=== PATIENT | male | born 1970 | race American Indian/Alaskan Native ===

== ENCOUNTER 2017-11-06 22:49 | Inpatient (IN) | payer SELFPAY ==
--- NOTE | 2017-11-06 22:52 | ER Report ---
History and Physical Time Seen By MD: 22:52 HPI/ROS CHIEF COMPLAINT: Abdominal pain HISTORY OF PRESENT ILLNESS: 46-year-old male with type II diabetes on metformin and herbs from [place] presents with epigastric pain across his upper abdomen since this morning. Patient ate at [facility] changed yesterday. He thinks he might have food poisoning. He's had vomiting but no diarrhea. He denies dysuria. He has no previous abdominal surgeries. He notes 8/10 epigastric pain radiating to his back. Patient denies cardiac history. REVIEW OF SYSTEMS: Respiratory: No cough, no dyspnea. Cardiovascular: No chest pain, no palpitations. Gastrointestinal: As above Musculoskeletal: As above Allergies: Coded Allergies: No Known Drug Allergies (Unverified , 11/06/17) Home Meds Reported Medications Metformin Hcl (METFORMIN HCL) 1,000 Mg Tablet, 1 TAB PO QDAY, TAB 11/06/17 Past Medical/Surgical History Type II diabetes Reviewed Nurses Notes: Yes Old Medical Records Reviewed: Yes Constitutional Vital Sign - Last 24 Hours 11/06/17 11/06/17 11/06/17 11/06/17 22:54 22:55 23:00 23:15 Temp 98.6 Pulse 107 Resp 20 B/P (MAP) 153/107 153/107 (122) 143/98 (113) 146/93 (110) Pulse Ox 95 O2 Delivery Room Air 11/06/17 11/06/17 11/06/17 11/06/17 23:19 23:30 23:38 23:45 Pulse 106 B/P (MAP) 141/93 (109) 150/99 (116) Pulse Ox 94 O2 Flow Rate 2.0 11/06/17 11/07/17 11/07/17 11/07/17 23:49 00:00 00:15 00:19 Pulse 102 101 B/P (MAP) 147/97 (114) 129/95 (106) Pulse Ox 97 96 11/07/17 11/07/17 11/07/17 11/07/17 00:24 00:45 01:00 01:05 Pulse 104 104 B/P (MAP) 126/87 (100) 121/88 (99) Pulse Ox 96 95 11/07/17 11/07/17 11/07/17 11/07/17 01:15 01:30 01:35 01:40 Pulse 104 101 B/P (MAP) 125/83 (97) 132/94 (107) Pulse Ox 94 95 Physical Exam General Appearance: The patient is alert, has no immediate need for airway protection and no current signs of toxicity. Moderate distress. Vital signs stable, afebrile, mildly tachycardic HEENT: Pupils equal and round no injection. Oropharynx without redness or exudate, mucous. Membranes are moist Respiratory: Chest is non tender, lungs are clear to auscultation. Cardiac: regular rate and rhythm Gastrointestinal: Abdomen is soft, mild distention, moderate epigastric tenderness, no masses, bowel sounds normal. Musculoskeletal: Neck: Neck is supple and non tender. Extremities have full range of motion and are non tender. Skin: No rashes or lesions. DIFFERENTIAL DIAGNOSIS: After history and physical exam differential diagnosis was considered for abdominal pain including but not limited to appendicitis, cholecystitis, gastritis, pancreatitis, gastritis, food poisoning and urinary tract infection. Medical Decision Making Data Points Result Diagram: 11/06/17 4230 11/06/17 5127 Laboratory Hematology Test 11/06/17 22:56 11/06/17 23:25 Urine Color Yellow Urine Clarity Clear Urine pH 7.0 pH (4.8-9.5) Urine Specific [place] 1.033 Urine Protein 100 mg/dL (NEGATIVE) Urine Glucose (UA) 500 mg/dL (NEGATIVE) Urine Ketones 80 mg/dL (NEGATIVE) Urine Blood Negative (NEGATIVE) Urine Nitrite Negative (NEGATIVE) Urine Bilirubin Negative (NEGATIVE) Urine Urobilinogen Negative mg/dL (0.2-1.9) Urine Leukocyte Esterase Negative (NEGATIVE) Urine RBC <1 /HPF (0-2/HPF) Urine WBC 1 /HPF (0-5/HPF) Urine Squamous Epithelial Cells None /LPF (</=FEW) Urine Bacteria Negative /HPF (NONE-FEW) Urine Mucus None /HPF (NONE-FEW) Red Blood Count 4.74 M/uL (4.00-5.60) Mean Corpuscular Volume 87.7 fL (80.0-96.0) Mean Corpuscular Hemoglobin 32.0 pg (26.0-33.0) Mean Corpuscular Hemoglobin Concent 36.1 g/dL (32.0-36.0) Red Cell Distribution Width 12.7 % (11.5-14.5) Mean Platelet Volume 10.3 fL (7.2-11.1) Neutrophils (%) (Auto) % (39.4-72.5) Lymphocytes (%) (Auto) % (17.6-49.6) Monocytes (%) (Auto) % (4.1-12.4) Eosinophils (%) (Auto) % (0.4-6.7) Basophils (%) (Auto) % (0.3-1.4) Nucleated RBC Relative Count (auto) /100WBC Neutrophils # (Auto) K/uL (2.0-7.4) Lymphocytes # (Auto) K/uL (1.3-3.6) Monocytes # (Auto) K/uL (0.3-1.0) Eosinophils # (Auto) K/uL (0.0-0.5) Basophils # (Auto) K/uL (0.0-0.1) Nucleated RBC Absolute Count (auto) K/uL Neutrophils % (Manual) 82 % (39.4-72.5) Band Neutrophils % % Lymphocytes % (Manual) 12 % (17.6-49.6) Monocytes % (Manual) 4 % (4.1-12.4) Eosinophils % (Manual) 1 % (0.4-6.7) Basophils % (Manual) 1 % (0.3-1.4) Peripheral Blood Smear Yes Y/N Sodium Level 128 mmol/L (137-145) Potassium Level 3.8 mmol/L (3.5-5.0) Chloride Level 91 mmol/L (98-107) Carbon Dioxide Level 18 mmol/L (22-30) Blood Urea Nitrogen 12 mg/dl (9-21) Creatinine 0.50 mg/dl (0.66-1.25) Glomerular Filtration Rate Calc > 60.0 Random Glucose 250 mg/dl (75-110) Calcium Level 8.9 mg/dl (8.4-10.2) Total Bilirubin 0.8 mg/dl (0.2-1.3) Aspartate Amino Transf (AST/SGOT) 17 U/L (0-35) Alanine Aminotransferase (ALT/SGPT) 17 U/L (0-56) Alkaline Phosphatase 104 U/L (0-126) Total Protein 7.2 gm/dl (6.3-8.2) Albumin 3.4 g/dl (3.5-5.0) Amylase Level 350 U/L (0-110) Lipase 44747 U/L (23-300) Chemistry Test 11/06/17 22:56 11/06/17 23:25 Urine Color Yellow Urine Clarity Clear Urine pH 7.0 pH (4.8-9.5) Urine Specific [place] 1.033 Urine Protein 100 mg/dL (NEGATIVE) Urine Glucose (UA) 500 mg/dL (NEGATIVE) Urine Ketones 80 mg/dL (NEGATIVE) Urine Blood Negative (NEGATIVE) Urine Nitrite Negative (NEGATIVE) Urine Bilirubin Negative (NEGATIVE) Urine Urobilinogen Negative mg/dL (0.2-1.9) Urine Leukocyte Esterase Negative (NEGATIVE) Urine RBC <1 /HPF (0-2/HPF) Urine WBC 1 /HPF (0-5/HPF) Urine Squamous Epithelial Cells None /LPF (</=FEW) Urine Bacteria Negative /HPF (NONE-FEW) Urine Mucus None /HPF (NONE-FEW) White Blood Count 16.5 k/uL (4.5-11.0) Red Blood Count 4.74 M/uL (4.00-5.60) Hemoglobin 15.0 g/dL (14.0-18.0) Hematocrit 41.6 % (42.0-52.0) Mean Corpuscular Volume 87.7 fL (80.0-96.0) Mean Corpuscular Hemoglobin 32.0 pg (26.0-33.0) Mean Corpuscular Hemoglobin Concent 36.1 g/dL (32.0-36.0) Red Cell Distribution Width 12.7 % (11.5-14.5) Platelet Count 232 K/uL (150-450) Mean Platelet Volume 10.3 fL (7.2-11.1) Neutrophils (%) (Auto) % (39.4-72.5) Lymphocytes (%) (Auto) % (17.6-49.6) Monocytes (%) (Auto) % (4.1-12.4) Eosinophils (%) (Auto) % (0.4-6.7) Basophils (%) (Auto) % (0.3-1.4) Nucleated RBC Relative Count (auto) /100WBC Neutrophils # (Auto) K/uL (2.0-7.4) Lymphocytes # (Auto) K/uL (1.3-3.6) Monocytes # (Auto) K/uL (0.3-1.0) Eosinophils # (Auto) K/uL (0.0-0.5) Basophils # (Auto) K/uL (0.0-0.1) Nucleated RBC Absolute Count (auto) K/uL Neutrophils % (Manual) 82 % (39.4-72.5) Band Neutrophils % % Lymphocytes % (Manual) 12 % (17.6-49.6) Monocytes % (Manual) 4 % (4.1-12.4) Eosinophils % (Manual) 1 % (0.4-6.7) Basophils % (Manual) 1 % (0.3-1.4) Peripheral Blood Smear Yes Y/N Glomerular Filtration Rate Calc > 60.0 Calcium Level 8.9 mg/dl (8.4-10.2) Total Bilirubin 0.8 mg/dl (0.2-1.3) Aspartate Amino Transf (AST/SGOT) 17 U/L (0-35) Alanine Aminotransferase (ALT/SGPT) 17 U/L (0-56) Alkaline Phosphatase 104 U/L (0-126) Total Protein 7.2 gm/dl (6.3-8.2) Albumin 3.4 g/dl (3.5-5.0) Amylase Level 350 U/L (0-110) Lipase 69815 U/L (23-300) Urinalysis Test 11/06/17 22:56 Urine Color Yellow Urine Clarity Clear Urine pH 7.0 pH (4.8-9.5) Urine Specific [place] 1.033 Urine Protein 100 mg/dL (NEGATIVE) Urine Glucose (UA) 500 mg/dL (NEGATIVE) Urine Ketones 80 mg/dL (NEGATIVE) Urine Blood Negative (NEGATIVE) Urine Nitrite Negative (NEGATIVE) Urine Bilirubin Negative (NEGATIVE) Urine Urobilinogen Negative mg/dL (0.2-1.9) Urine Leukocyte Esterase Negative (NEGATIVE) Urine RBC <1 /HPF (0-2/HPF) Urine WBC 1 /HPF (0-5/HPF) Urine Squamous Epithelial Cells None /LPF (</=FEW) Urine Bacteria Negative /HPF (NONE-FEW) Urine Mucus None /HPF (NONE-FEW) EKG/Imaging Imaging Results: CT scan of the abdomen and pelvis with IV contrast was obtained. The results of the study are ABDOMEN/PELVIS WITH CONTRAST Additional pertinent History: Lipase elevation TECHNIQUE: Spiral scan was through the abdomen and pelvis during injection of nonionic iodinated intravenous contrast. Contrast: 75 mL of IV Isovue 370. One of the following dose optimization techniques was utilized in the performance of this exam: Automated exposure control; adjustment of the mA and/ or kV according to the patient's size; or use of an iterative reconstruction technique. Specific details can be referenced in the facility's radiology CT exam operational policy. COMPARISON STUDIES: none. FINDINGS: Liver / biliary: Diminished attenuation of the liver compatible fatty infiltrative changes. 5 mm stone within the gallbladder. No wall thickening Pancreas: Peripancreatic fluid/inflammation circumscribing the entire pancreas up to it depth of 1.3 cm. No pancreatic mass. No evidence of pancreatic necrosis. Spleen: negative Adrenal glands: negative Kidneys / retroperitoneum: negative Pelvic structures: Prostate grossly normal. No free fluid in the pelvis bladder is unremarkable Bowel / peritoneum / mesenteries: No colonic mass lesion or inflammation. Calcified lymph node/phlebolith in the pelvis. Vessels: negative Musculoskeletal / Body wall: negative Lymph node assessment: negative Lower chest: negative IMPRESSION: 1. Changes compatible with acute pancreatitis. The study was read by the radiologist. I viewed the images myself on the PACS system. ED Course/Re-evaluation Clinical Indication for ER IV: Hydration, IV Access ED Course Patient was admitted to an examination room. H&P was done. The differential diagnoses was considered. On clinical examination the patient. Moderate epigastric tenderness. He's been having vomiting. He's had abdominal pain all day long. Diagnostic evaluation shows a lipase of 17,000. A CT scan of the abdomen and pelvis was performed showing no significant pathology other than peripancreatic inflammation. Patient's pain was controlled with IV fentanyl, Toradol and Dilaudid 1 mg. Patient's white blood cell count was elevated to 16, 000. 11/07/2017 1:25:38 am case discussed with Dr. Glover hospitalist on-call, who accepts the patient for admission. Decision to Disposition Date: November 07, 2017 Decision to Disposition Time: 00:41 Depart Departure Latest Vital Signs Vital Signs Date Time Temp Pulse Resp B/P (MAP) Pulse Ox O2 Delivery O2 Flow Rate FiO2 11/07/17 01:40 101 95 11/07/17 01:30 132/94 (107) 11/06/17 23:38 2.0 11/06/17 22:54 98.6 20 Room Air Impression: Primary Impression: Pancreatitis Additional Impression: Type II diabetes mellitus Condition: Improved Disposition: Admitted from ER Problem Qualifiers Primary Impression: Pancreatitis Chronicity: acute Pancreatitis type: unspecified pancreatitis type Acute pancreatitis complication: unspecified Qualified Codes: K85.90 - Acute pancreatitis without necrosis or infection, unspecified Additional Impression: Type II diabetes mellitus Diabetes mellitus long term care social worker insulin use: without long term care social worker use Diabetes mellitus complication status: without complication Qualified Codes: E11.9 - Type 2 diabetes mellitus without complications JENNA SHANNON DO November 06, 2017 22:53
[2017-11-06] MEDS ORDERED: NS(*) 0.9% 1000 ML BAG 1,000 ML IV ONE (23:03)
[2017-11-06] MEDS ORDERED: METF-421 PO (23:04)
[2017-11-06] MEDS ORDERED: ONDANSETRON 4 MG/2 ML VIAL IVP ONE (23:05)
[2017-11-06] MEDS ORDERED: KETOROLAC 30 MG/ML VIAL IVP ONE (23:05)
[2017-11-06] MEDS ORDERED: fentaNYL CITR 100 MCG/2 ML AMP IVP ONE (23:05)
[2017-11-06 23:34] LABS: PLATELET COUNT, AUTOMATED 232 K/uL (150-450)
[2017-11-07] VITALS (8 sets, daily range): BP systolic 99–140; BP diastolic 51–88
[2017-11-07] MEDS ORDERED: HYDROmorphone* 1 MG/ML 1 MG/ML ML IVP ONE (00:20)
[2017-11-07] MEDS ORDERED: IOPAMIDOL 76% 75 ML INFUS BTL 75 ML ONE (00:25)
--- NOTE | 2017-11-07 01:05 | RADIOLOGY IMAGING REPORT ---
[place] [facility] [place] Pam Mazariegos : 1970 MR: [id number] V: [id number] EXAM DATE: ORDERING PHYSICIAN: JENNA HSANNON TECHNOLOGIST: Location: [facility] [place] Patient: Pam Mazariegos : 1970 Visit/Account:[id number] Date of Sevice: 11/07/2017 ABDOMEN/PELVIS WITH CONTRAST Additional pertinent History: Lipase elevation TECHNIQUE: Spiral scan was through the abdomen and pelvis during injection of nonionic iodinated in travenous contrast. Contrast: 75 mL of IV Isovue 370. One of the following dose optimization techniques was utilized in the performance of this exam: Autom ated exposure control; adjustment of the mA and/or kV according to the patient's size; or use of an i terative reconstruction technique. Specific details can be referenced in the facility's radiology C T exam operational policy. COMPARISON STUDIES: none. FINDINGS: Liver / biliary: Diminished attenuation of the liver compatible fatty infiltrative changes. 5 mm ston e within the gallbladder. No wall thickening Pancreas: Peripancreatic fluid/inflammation circumscribing the entire pancreas up to it depth of 1.3 cm. No pancreatic mass. No evidence of pancreatic necrosis. Spleen: negative Adrenal glands: negative Kidneys / retroperitoneum: negative Pelvic structures: Prostate grossly normal. No free fluid in the pelvis bladder is unremarkable Bowel / peritoneum / mesenteries: No colonic mass lesion or inflammation. Calcified lymph node/phlebo lith in the pelvis. Vessels: negative Musculoskeletal / Body wall: negative Lymph node assessment: negative Lower chest: negative IMPRESSION: 1. Changes compatible with acute pancreatitis. Report Dictated By: Ezio Doyle MD at 11/07/2017 12:53 AM Report E-Signed By: Ezio Doyle MD at 11/07/2017 12:59 AM [id number]
[2017-11-07] MEDS ORDERED: NALOXONE HCL 0.4 MG/ML VIAL IVP PRN (02:45)
[2017-11-07] MEDS ORDERED: PROMETHAZINE 25 MG/ML 1 ML AMP IVP PRN ×2 (02:45→10:25)
[2017-11-07] MEDS ORDERED: INFLUENZA VIRUS VAC 0.5 ML SYR IM ONLY ONE (02:45)
--- NOTE | 2017-11-07 02:55 | History & Physical ---
History of Present Illness Chief Complaint Abdominal pain and vomiting History of Present Illness This patient presented to the emergency room complaining of acute onset abdominal pain and vomiting. He reports that his symptoms occurred shortly after eating rice. He does have a history of pancreatitis several months ago, which presented in a similar fashion after eating pizza. He denies alcohol or any other medications besides his metformin. History Problems: (1) Type II diabetes mellitus Status: Chronic (2) Pancreatitis Status: Chronic Home Meds Reported Medications Metformin Hcl (METFORMIN HCL) 1,000 Mg Tablet, 1 TAB PO QDAY, TAB 11/06/17 Allergies: Coded Allergies: No Known Drug Allergies (Unverified , 11/06/17) Hx Smoking: No Caffeine Intake: Coffee Hx Alcohol Use: No Hx Substance Use Disorder: No Review of Systems All Systems Reviewed/Normal: Yes, Except as Noted Gastrointestinal: Vomiting, Abdominal Pain Exam Vital Signs Vital Signs Date Time Temp Pulse Resp B/P (MAP) Pulse Ox O2 Delivery O2 Flow Rate FiO2 11/07/17 02:12 97 Nasal Cannula 1.0 11/07/17 02:01 97.9 97 20 140/88 (105) Neuro: No Gross deficits Eyes: PERRLA Cardiovascular: Regular Rate and Rhythm Respiratory: Clear to Auscultation GI: Other (Epigastric tenderness.) Extremities: No Edema Integumentary: No Jaundice, No Cyanosis Medical Decision Making Data Points Result Diagram: 11/06/17232411/06/172324 Item Value Date Time Total Bilirubin 0.8 mg/dl 11/06/172324 Aspartate Amino Transf (AST/SGOT) 17 U/L 11/06/172324 Alanine Aminotransferase (ALT/SGPT) 17 U/L 11/06/172324 Alkaline Phosphatase 104 U/L 11/06/172324 EKG / Imaging Imaging CT scan reviewed. Assessment and Plan Problems: (1) Acute pancreatitis Assessment & Plan: He did present with acute onset abdominal pain and vomiting. His lipase is elevated and his CT scan showed findings consistent with pancreatitis. He had a similar episode several months ago, which was also unexplained. We have placed him NPO and started him on a morphine DIGITAL DIRECTOR. IV fluids have also been started. (2) Cholelithiasis Assessment & Plan: He CT scan showed a stone, but no evidence of ductal dilation and his biliary labs were normal. An ultrasound of the gallbladder has been ordered. (3) Type II diabetes mellitus Status: Chronic Assessment & Plan: He is on chronic treatment with metformin, which has been placed on hold. He has been started on sliding scale level #2. Venous Thromboembolism Antithrombotics Is Pt On Any Antithrombotics?: No Exam Sepsis Risk: No Definite Risk Problem Qualifiers (1) Type II diabetes mellitus: Diabetes mellitus ferry terminal supervisor insulin use: without ferry terminal supervisor use Diabetes mellitus complication status: without complication Qualified Codes: E11.9 - Type 2 diabetes mellitus without complications ADITI HAWKINS DO November 07, 2017 02:55
[2017-11-07] MEDS: NS(*) 0.9% 1000 ML BAG 1,000 ML IV PRN ×3 (03:19→13:57)
[2017-11-07] MEDS: MORPHINE 1 MG/ML 30 ML PCA IV PRN ×2 (03:20→16:56)
[2017-11-07] MEDS: ENOXAPARIN 40 MG/0.4ML SYR SC SCH (08:54)
--- NOTE | 2017-11-07 09:50 | RADIOLOGY IMAGING REPORT ---
FACILITY: [facility] - [place] PATIENT NAME: Pam Mazariegos : 1970 MR: [id number] V: [id number] EXAM DATE: ORDERING PHYSICIAN: ADITI HAWKINS TECHNOLOGIST: Location: [facility] [place] Patient: Pam Mazariegos : 1970 Visit/Account:[id number] Date of Sevice: 11/07/2017 Limited abdominal ultrasound of the right upper quadrant Indication: Right upper quadrant abdominal pain. Comparison: None available Findings There is diffuse fatty liver identified. This was seen on this morning's CT scan. This limits evaluat ion for focal lesions. The liver is enlarged measuring 21.0 cm in length. No intrahepatic biliary dil atation. Liver surface is smooth. There is normal hepatopedal portal venous flow. Gallbladder wall thickness is 2.9 mm with a mobile, shadowing gallstone within the gallbladder lumen. Positive sonographic Antonio's sign reported by the technologist. No definitive pericholecystic fluid . Common duct measures 4.6 mm in maximum diameter with no evidence of shadowing stone. Abdominal aorta and IVC are patent and unremarkable. The right kidney is normal in size, contour, and echotexture and measures 10.1 cm in length. There is peripancreatic fluid/edema identified. Distal body and tail are not well seen due to bowel g as. IMPRESSION: 1. Mobile gallstone within the gallbladder lumen with upper limits of normal gallbladder wall thickne ss and with a positive sonographic Antonio sign. Early cholecystitis cannot be completely excluded. No pericholecystic fluid. 2. Peripancreatic edema/fluid in keeping with pancreatitis findings on this morning's CT scan. 3. Hepatomegaly with diffuse fatty liver. Report Dictated By: Vin Hu at 11/07/2017 9:40 AM Report E-Signed By: Vin Hu at 11/07/2017 9:47 AM [id number]
[2017-11-07] MEDS: INSULIN HUM LISPRO 100 UN/ML 3 ML VIAL SUBQ PRN ×3 (12:00→23:48)
--- NOTE | 2017-11-07 12:38 | Medical Nutrition Therapy ---
Nutrition Anthropometrics Weight (Pounds): 161 Weight (Calculated Kilograms): 73.028 Nitin Nutrition Score: Adequate Nitin Nutrition Risk Score: 20 Dietary Referral Nutrition Risk Factors: Nutrition Risk Comment: Physical Findings Physical Appearance: Ht not available Skin Appearance Skin Appearance: Edema Edema Location Modifier: Edema Location: Type of Edema: Degree of Edema: Gastrointestinal Symptoms GI Symtoms: Nausea Tube Present: Bowel Sounds: Recent Bowel Pattern: Stool Characteristics: Nutrition/Food History Decreased Appetite Nutritional Diagnosis Nutritional Risk Acuity 2: Pancreatitis Past Medical History: Type II diabetes mellitus, Pancreatitis Nutritional Acuity: 2-Moderate Nutrition Diagnosis: Altered GI Function Nutrition Etiology: Physiological Causes Nutrition Problem/Etiology/Sym: Altered Gastrointestinal (GI) Function related to compromised exocrine function of pancreas AEB patient reports of N/Abdominal pain and 17,244 Lipase. Diet Type: NPO (Nothing by Mouth) Nutrition Intervention: Change diet, Incr diet as tolerated Nutrition Monitoring & Eval Nutrition Goals: Eat 50-100% Meal RD Patient Assessment Time: [address] Assessment Type: RD Assessment Patient Nutrition Acuity: 2-Moderate Follow Up Date: November 09, 2017 Nutritional Comment: 11/07 Pt admitted with pancreatitis. Alb 3.4, Glu 240, High WBC, Lipase 17,244, Amylase 350. Lispro SSI. Not able to assess wt status - need to obtain HT. Pt NPO at present. Follow labs, clinical progression, diet changes, etc. -ROB MOJICA November 07, 2017 12:38
[2017-11-07] MEDS ORDERED: NS(*) 0.9% 1000 ML BAG 1,000 ML IV PRN (14:12)
--- NOTE | 2017-11-07 18:47 | EKG ---
FACILITY: [facility] PATIENT NAME: THELMA SALAZAR : [id number] MR: [id number] V: [id number] EXAM DATE: ORDERING PHYSICIAN: BLESSING WINCHESTER TECHNOLOGIST: WILLIS Test Reason : TACHYCARDIA Blood Pressure : / mmHG Vent. Rate : 127 BPM Atrial Rate : 127 BPM P-R Int : 170 ms QRS Dur : 084 ms QT Int : 280 ms P-R-T Axes : 039 112 034 degrees QTc Int : 406 ms Sinus tachycardia Right axis deviation T flattening consistent with inferior ischemia vs normal variant No previous ECGs available Confirmed by BLESSING WINCHESTER ([id number]) on 11/07/2017 8:40:51 PM Referred By: ANNABELLA Confirmed By:BLESSING WINCHESTER
[2017-11-07] MEDS ORDERED: NS(*) 0.9% 500 ML BAG 500 ML IV ONE (22:00)
[2017-11-08 03:22] VITALS: BP 123/75
[2017-11-08] MEDS: INSULIN HUM LISPRO 100 UN/ML 3 ML VIAL SUBQ PRN ×4 (05:52→23:48)
[2017-11-08 05:58] LABS: PLATELET COUNT, AUTOMATED 308 K/uL (150-450)
[2017-11-08 07:37] VITALS: BP 121/78
[2017-11-08] MEDS: MORPHINE 1 MG/ML 30 ML PCA IV PRN (08:10)
[2017-11-08] MEDS: ENOXAPARIN 40 MG/0.4ML SYR SC SCH (09:36)
--- NOTE | 2017-11-08 10:50 | Hospitalist Progress Note ---
Subjective Progress Notes Subjective He reports pain is improved with the morphine MANAGER WIRELESS. No fever. Abdomen more distended. No BMs. Physical Exam Vital Signs Date Time Temp Pulse Resp B/P (MAP) Pulse Ox O2 Delivery O2 Flow Rate FiO2 11/08/17 09:00 130 11/08/17 07:49 88 11/08/17 07:48 Room Air 1.0 11/08/17 07:37 99.1 20 121/78 (92) General Appearance: Alert, Awake Cardiovascular: Other (Regular, but tachycardic) Respiratory: Clear to Auscultation Chest: No Tenderness GI: Other (Distended/tender diffusely/BS present/no guarding or rebound) : No CVA Tenderness Extremities: Warm, Perfused Psych: Alert & Oriented X3 Result Diagram: 11/08/17 0535 11/08/17 0535 Item Value Date Time Thyroid Stimulating Hormone (TSH) 0.83 uIU/ml 11/08/17 0535 Lipase 5190 U/L H 11/08/17 0535 Albumin 2.9 g/dl L 11/08/17 0535 Total Protein 5.8 gm/dl L 11/08/17 0535 Alkaline Phosphatase 70 U/L 11/08/17 0535 Alanine Aminotransferase (ALT/SGPT) 17 U/L 11/08/17 0535 Aspartate Amino Transf (AST/SGOT) 20 U/L 11/08/17 0535 Total Bilirubin 0.9 mg/dl 11/08/17 0535 Calcium Level 7.6 mg/dl L 11/08/17 0535 Assessment and Plan Problems: (1) Acute pancreatitis Assessment & Plan: He did present with acute onset abdominal pain and vomiting. His lipase was elevated and his CT scan showed findings consistent with pancreatitis. He had a similar episode several months ago, which was also unexplained. It does appear to most likely be gallstone pancreatitis. He is a non-drinker. He is NPO and on a morphine MANAGER WIRELESS and IV fluids. His distension is increased and abdomen is diffusely tender. Will re-check non-contrast CT to check for any progression/necrosis. (2) Cholelithiasis Assessment & Plan: He CT scan showed a stone, but no evidence of ductal dilation and his biliary labs were normal. Ultrasound of the gallbladder is essentially the same. He will most likely need cholecystectomy in near future. Will discuss with Dr. Mckenzie. (3) Type II diabetes mellitus Status: Chronic Assessment & Plan: He is on chronic treatment with metformin, which has been placed on hold. He is on sliding scale insulin. Exam Sepsis Risk: Sepsis Risk Problem Qualifiers (1) Type II diabetes mellitus: Diabetes mellitus intermediate designer insulin use: without intermediate designer use Diabetes mellitus complication status: without complication Qualified Codes: E11.9 - Type 2 diabetes mellitus without complications MARY HERBERT MD November 08, 2017 10:50
[2017-11-08 10:54] VITALS: BP 126/90
--- NOTE | 2017-11-08 12:28 | RADIOLOGY IMAGING REPORT ---
FACILITY: [facility] - [place] PATIENT NAME: Pam Mazariegos : 1970 MR: [id number] V: [id number] EXAM DATE: ORDERING PHYSICIAN: MARY HERBERT TECHNOLOGIST: Location: [facility] - [place] Patient: Pam Mazariegos : 1970 Visit/Account:[id number] Date of Sevice: 11/08/2017 EXAMINATION: CT abdomen without IV contrast CT pelvis without IV contrast HISTORY: Acute pancreatitis. COMPARISON: CT abdomen and pelvis and right upper quadrant ultrasound from 11/07/2017. TECHNIQUE: Axial images were taken through the abdomen and pelvis without intravenous contrast. Sag ittal and coronal reformatted images are also submitted. One of the following dose optimization techniques was utilized in the performance of this exam: Autom ated exposure control; adjustment of the mA and/or kV according to the patient's size; or use of an i terative reconstruction technique. Specific details can be referenced in the facility's radiology C T exam operational policy. FINDINGS: Please note that without intravenous contrast, sensitivity to detection of parenchymal disease is alexandra ited. Liver/biliary: Mild hepatomegaly with moderate to severe diffuse fatty infiltration of the liver. In creased density in the gallbladder compared to previous CT with calcified stone at the gallbladder ne ck. No obvious biliary ductal dilatation. Pancreas: Pancreatic head area is mildly enlarged, without focal lesion on this noncontrast exam. Spleen: Negative. Adrenal glands: Negative. Kidneys: There is mild perinephric stranding which is new. Mildly increased density in the left supe rior pole cortex to be contrast in a calyx or cortical calcification. Pelvic structures: Negative. Bowel: Negative. Peritoneum/retroperitoneum/mesenteries: Significant increased fat stranding and patchy fluid adjacent to the pancreas. There is thickening of the anterior pararenal fascia and lateral conal fascia bila terally, with small amount of fluid tracking along both paracolic gutters into the pelvis, new from p rior exam. Mild mesenteric edema centrally is increased. Vessels: Negative. Musculoskeletal/body wall: Negative. Lymph nodes: Negative. Lower chest: Trace bilateral pleural effusions with adjacent atelectasis, new from prior exams. IMPRESSION: 1. Acute pancreatitis is worse. Significant increased inflammation adjacent to the pancreas and fausto ma with fluid tracking along both paracolic gutters into the pelvis. 2. Mild hepatomegaly with moderate to severe diffuse fatty infiltration of the liver, unchanged. 3. Gallstone is unchanged. Increased density in the gallbladder could be vicarious excretion of con trast related to previous CT. 4. Trace bilateral pleural effusions with adjacent atelectasis, new from prior exams. Report Dictated By: Jeannette Desai MD at 11/08/2017 12:17 PM Report E-Signed By: Jeannette Desai MD at 11/08/2017 12:24 PM JANICEN:MISBAH
[2017-11-08] MEDS ORDERED: PHENOL SPRAY 120 ML BTL MT PRN (13:40)
[2017-11-08] MEDS ORDERED: NS(*) 0.9% 1000 ML BAG 1,000 ML IV PRN (14:23)
[2017-11-08 15:43] VITALS: BP 124/88
--- NOTE | 2017-11-08 18:13 | General Surgery Consultation ---
History of Present Illness Requesting Physician Dr. Giuseppe Howell, Hospitalist Service Reason for Consult Gallstone Pancreatitis Chief Complaint Abdominal pain History of Present Illness 46yo diabetic male is admitted to the hospitalist service with gallstone pancreatitis. He was admitted 2 days ago and started on IV fluids and bowel rest. RUQ U/S has revealed gallstones. I was consulted to discuss cholecystectomy after his pancreatitis resolves. Pt reports that he feels that he's improving. He's passing flatus but no BM since before admission. No N/V today but he did have N/V yesterday and the day before yesterday. No previous h /o RUQ abdominal pain or pancreatitis. No jaundice, choleuria, or steatorrhea. History Problems: (1) Type II diabetes mellitus Status: Chronic Home Meds Reported Medications Metformin Hcl (METFORMIN HCL) 1,000 Mg Tablet, 1 TAB PO QDAY, TAB 11/06/17 Allergies: Coded Allergies: No Known Drug Allergies (Unverified , 11/06/17) Review of Systems All Systems Reviewed/Normal: Yes, Except as Noted Gastrointestinal: Nausea, Vomiting, Abdominal Pain Exam Vital Signs Vital Signs Date Time Temp Pulse Resp B/P (MAP) Pulse Ox O2 Delivery O2 Flow Rate FiO2 11/08/17 15:46 133 11/08/17 15:43 99.6 18 124/88 (100) 93 Nasal Cannula 1.0 General Appearance: Alert, Awake, No Acute Distress, Afebrile Neuro: No Gross deficits Eyes: PERRLA GI: Other (Soft, mildly distended, diffuse upper abdominal TTP. No peritonitis or palpable masses.) Extremities: Warm, Perfused Medical Decision Making Data Points Result Diagram: 11/08/17 0535 11/08/17 0535 Assessment and Plan Problems: (1) Acute gallstone pancreatitis Status: Acute Assessment & Plan: 11/08/17: He's admitted to the Hospitalist Service and currently on bowel rest. I recommend continuing current management. CT today reveals worsening and spreading inflammatory changes along pericolic gutter but patient is reporting that he's feeling better at the moment. CT today was without IV contrast since he received IV contrast 2 days ago. It is difficult to assess for necrotic pancreas without IV contrast. Will need to follow him closely and if he continues having fevers with worsening tachycardia, etc then I recommend starting imipenum and he will need to repeat an abdominal CT with IV contrast to look for (possibly infected) necrotic pancreas that may require debridement. Would also need to look for fluid collections on the same study. He is demonstrating worsening tachycardia and mild fevers of 99 deg F. These are likely secondary to the burn-like retroperitoneal inflammation seen on CT today. I recommend increasing his crystalloid IV fluid rate to 200ml/hour and boluses of crystalloid as necessary to match his 3rd spaced fluid losses due to his significant retroperitoneal inflammation. He will ultimately require cholecystectomy but will wait for his pancreatitis to clinically resolve. I have explained this plan to him and he seems to understand and he seems agreeable with the plan. Condition Guarded Time Spent: < 30 min Venous Thromboembolism Antithrombotics Is Pt On Any Antithrombotics?: No ADITI DOBBINS MD November 08, 2017 18:13
[2017-11-08 19:51] VITALS: BP 127/82
[2017-11-08] MEDS: NS(*) 0.9% 1000 ML BAG 1,000 ML IV PRN (21:29)
[2017-11-08 23:20] VITALS: BP 137/86
[2017-11-09] MEDS: NS(*) 0.9% 1000 ML BAG 1,000 ML IV PRN ×2 (02:05→06:11)
[2017-11-09 02:53] VITALS: BP 118/82
[2017-11-09 05:46] LABS: PLATELET COUNT, AUTOMATED 187 K/uL (150-450)
[2017-11-09] MEDS: INSULIN HUM LISPRO 100 UN/ML 3 ML VIAL SUBQ PRN ×2 (06:10→12:15)
[2017-11-09 07:35] VITALS: BP 131/78
--- NOTE | 2017-11-09 07:47 | General Surgery Progress Note ---
Subjective Progress Notes Subjective Feeling better but more bloated. No other complaints this morning. Physical Exam Vital Signs Date Time Temp Pulse Resp B/P (MAP) Pulse Ox O2 Delivery O2 Flow Rate FiO2 11/09/17 07:38 90 Room Air 1.0 11/09/17 07:35 98.3 120 22 131/78 (95) General Appearance: Alert, Awake, No Acute Distress, Afebrile GI: Other (Soft, distended, diffuse TTP, no peritoneal signs.) Extremities: Warm, Perfused Result Diagram: 11/09/17 0535 11/09/17 0535 Assessment and Plan Problems: (1) Acute gallstone pancreatitis Status: Acute Assessment & Plan: 11/08/17: He's admitted to the Hospitalist Service and currently on bowel rest. I recommend continuing current management. CT today reveals worsening and spreading inflammatory changes along pericolic gutter but patient is reporting that he's feeling better at the moment. CT today was without IV contrast since he received IV contrast 2 days ago. It is difficult to assess for necrotic pancreas without IV contrast. Will need to follow him closely and if he continues having fevers with worsening tachycardia, etc then I recommend starting imipenum and he will need to repeat an abdominal CT with IV contrast to look for (possibly infected) necrotic pancreas that may require debridement. Would also need to look for fluid collections on the same study. He is demonstrating worsening tachycardia and mild fevers of 99 deg F. These are likely secondary to the burn-like retroperitoneal inflammation seen on CT today. I recommend increasing his crystalloid IV fluid rate to 200ml/hour and boluses of crystalloid as necessary to match his 3rd spaced fluid losses due to his significant retroperitoneal inflammation. He will ultimately require cholecystectomy but will wait for his pancreatitis to clinically resolve. I have explained this plan to him and he seems to understand and he seems agreeable with the plan. 11/09/17: Lipase down but he's very distended and there was significant retroperitoneal inflammation on CT yesterday. Will hold off on cholecystectomy until swelling/distension improves. May need to repeat CT abdomen/pelvis with IV contrast tomorrow or . HR is improving with increased IV fluids. Hb is up which indicates hemoconcentration to some degree since he's pouring fluids into his inflamed retroperitoneum, will need to follow this and may need to go up on IV fluid rate even more but HR seems to be coming down so will follow this for now. Condition Guarded Time Spent: < 30 min Exam Sepsis Risk: Sepsis Risk ADITI DOBBINS MD November 09, 2017 07:47
[2017-11-09] MEDS: MORPHINE 1 MG/ML 30 ML PCA IV PRN (09:21)
[2017-11-09] MEDS: ENOXAPARIN 40 MG/0.4ML SYR SC SCH (09:21)
--- NOTE | 2017-11-09 10:22 | Medical Nutrition Therapy ---
Nutrition Anthropometrics Weight (Pounds): 161 Weight (Calculated Kilograms): 73.028 Nitin Nutrition Score: Adequate Nitin Nutrition Risk Score: 20 Dietary Referral Nutrition Risk Factors: Nutrition Risk Comment: Physical Findings Physical Appearance: Ht not available Skin Appearance Skin Appearance: Edema Edema Location Modifier: Edema Location: Type of Edema: Degree of Edema: Gastrointestinal Symptoms GI Symtoms: Nausea Tube Present: Bowel Sounds: Recent Bowel Pattern: Stool Characteristics: Nutritional Diagnosis Nutritional Risk Acuity 1: NPO/CL > 3 days Nutritional Risk Acuity 2: Pancreatitis Past Medical History: Type II diabetes mellitus, Pancreatitis Nutritional Acuity: 1-High Nutrition Diagnosis: Altered GI Function Nutrition Etiology: Physiological Causes Nutrition Problem/Etiology/Sym: Altered Gastrointestinal (GI) Function related to compromised exocrine function of pancreas AEB patient reports of N/Abdominal pain and 1,293 Lipase. Energy Requirement: 2190 (30 kcal/kg 30X 73) Protein Requirement: 88 (acute pancreatitis 1.2g/kg ) Fluid Requirement: 2190 (1 ml/anita) Diet Type: NPO (Nothing by Mouth) Nutrition Intervention: Change diet, Incr diet as tolerated Nutritional Support Recommended Enteral / Parental: TPN Recommended Goal Rate: 83ml/hr Recommended Duration: 24 (24 hr) Recommended Calories: 2040 (standard 2000ml (2040 kcal)) Recommended Protein: 84 (Standard TPN 2000ml 84g protein) Nutrition Monitoring & Eval RD Patient Assessment Time: [address] Assessment Type: RD Re-Assessment Patient Nutrition Acuity: 1-High Follow Up Date: November 11, 2017 Nutritional Comment: 11/07 Pt admitted with pancreatitis. Alb 3.4, Glu 240, High WBC, Lipase 17,244, Amylase 350. Lispro SSI. Not able to assess wt status - need to obtain HT. Pt NPO at present. Follow labs, clinical progression, diet changes, etc. -DRT 11/09 Pt continues day 4 on NPO diet. Pt may benefit from nutrition support with TPN usinf estimate kcal of 30 kcal per kg. 2000ml and 84g protein @ 83ml/hr for 24 hr feeding. Pt will most likely undergo cholecystectomy, however pt is still very distended and surgery will be put off until that is resolved. Abnormal labs are elevated lipase 1293, low alb 2.6 and elevated random blood glucose 173. Continue to monitor pt progress and diet advancement. CRISTIANE JUAREZ November 09, 2017 10:22
[2017-11-09] MEDS ORDERED: NS(*) 0.9% 1000 ML BAG 1,000 ML IV PRN (10:40)
[2017-11-09 12:02] VITALS: BP 128/96
--- NOTE | 2017-11-09 12:07 | Hospitalist Progress Note ---
Subjective Progress Notes Subjective He reports overall improvement in pain. Denies SOB. Physical Exam Vital Signs Date Time Temp Pulse Resp B/P (MAP) Pulse Ox O2 Delivery O2 Flow Rate FiO2 11/09/17 09:23 91 11/09/17 07:38 Room Air 1.0 11/09/17 07:35 98.3 120 22 131/78 (95) General Appearance: Alert, Awake, Other (mild work of breathing) Respiratory: Clear to Auscultation GI: Other (Distended and mild tenderness in epigastrum with palpation) Result Diagram: 11/09/17 0535 11/09/17 0535 Assessment and Plan Problems: (1) Acute pancreatitis Assessment & Plan: He did present with acute onset abdominal pain and vomiting. His lipase was elevated and his CT scan showed findings consistent with pancreatitis. He had a similar episode several months ago, which was also unexplained. It does appear to most likely be gallstone pancreatitis. He is a non-drinker. 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 His distension is increased and abdomen is diffusely tender. Repeat CT on 11/09 showed worsening pancreatitis, increased adjacent inflammation, edema and fluid tracking along both paracolic gutters into the pelvis. Lipase decreasing and he is reporting improvement in pain. Will advance his diet to clears. (2) Sinus tachycardia Status: Acute Assessment & Plan: Secondary to illness. He denies a h/o tachycardia. Heart rate is decreasing some. Will decrease fluids because he is now taking oral intake. Follow closely. (3) Cholelithiasis Assessment & Plan: He CT scan showed a stone, but no evidence of ductal dilation and his biliary labs were normal. Ultrasound of the gallbladder is essentially the same. He will most likely need cholecystectomy in near future. Dr. Mckenzie is following. See his notes. (4) Type II diabetes mellitus Status: Chronic Assessment & Plan: He is on chronic treatment with metformin, which has been placed on hold. He is on sliding scale insulin. 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
[2017-11-09 15:14] VITALS: BP 138/86
[2017-11-09 18:51] VITALS: BP 146/96
[2017-11-09] MEDS ORDERED: NS(*) 0.9% 500 ML BAG 500 ML ONE (20:09)
[2017-11-09] MEDS ORDERED: FUROSEMIDE 20 MG/2 ML VIAL IVP ONE (22:10)
--- NOTE | 2017-11-09 22:14 | Miscellaneous Provider Note ---
Miscellaneous Provider Note Note The patient is reporting more SOB. He is visibly more SOB when lying back. He certainly has a lot abdominal fluid limiting diaphragmatic excursion, but likely , also, has pulmonary congestion/pleural effusion from the volume resuscitation. He is still tachycardic and possibly a bit more hemoconcentrated by labs this morning by BUN and Hgb, but he is now symptomatic with dyspnea. His fluids have been stopped. Will try a dose of Lasix. BLESSING WINCHESTER MD November 09, 2017 22:14
[2017-11-09 23:55] VITALS: BP 155/91
[2017-11-10 04:27] VITALS: BP 125/87
[2017-11-10 05:38] LABS: PLATELET COUNT, AUTOMATED 211 K/uL (150-450)
[2017-11-10] MEDS: INSULIN HUM LISPRO 100 UN/ML 3 ML VIAL SUBQ PRN ×4 (06:01→23:56)
--- NOTE | 2017-11-10 07:00 | General Surgery Progress Note ---
Subjective Progress Notes Subjective Continues to feel better. Still feels bloated but improving. No N/V. Had a BM yesterday. Physical Exam Vital Signs Date Time Temp Pulse Resp B/P (MAP) Pulse Ox O2 Delivery O2 Flow Rate FiO2 11/10/17 06:03 93 11/10/17 04:27 99.1 108 20 125/87 (100) Nasal Cannula 1.0 General Appearance: Alert, Awake, No Acute Distress, Afebrile GI: Other (Soft, mildly distended, improving TTP in upper abdomen, no peritoneal signs.) Extremities: Warm, Perfused Result Diagram: 11/10/1752711/10/17527 Assessment and Plan Problems: (1) Acute gallstone pancreatitis Status: Acute Assessment & Plan: 11/08/17: He's admitted to the Hospitalist Service and currently on bowel rest. I recommend continuing current management. CT today reveals worsening and spreading inflammatory changes along pericolic gutter but patient is reporting that he's feeling better at the moment. CT today was without IV contrast since he received IV contrast 2 days ago. It is difficult to assess for necrotic pancreas without IV contrast. Will need to follow him closely and if he continues having fevers with worsening tachycardia, etc then I recommend starting imipenum and he will need to repeat an abdominal CT with IV contrast to look for (possibly infected) necrotic pancreas that may require debridement. Would also need to look for fluid collections on the same study. He is demonstrating worsening tachycardia and mild fevers of 99 deg F. These are likely secondary to the burn-like retroperitoneal inflammation seen on CT today. I recommend increasing his crystalloid IV fluid rate to 200ml/hour and boluses of crystalloid as necessary to match his 3rd spaced fluid losses due to his significant retroperitoneal inflammation. He will ultimately require cholecystectomy but will wait for his pancreatitis to clinically resolve. I have explained this plan to him and he seems to understand and he seems agreeable with the plan. 11/09/17: Lipase down but he's very distended and there was significant retroperitoneal inflammation on CT yesterday. Will hold off on cholecystectomy until swelling/distension improves. May need to repeat CT abdomen/pelvis with IV contrast tomorrow or . HR is improving with increased IV fluids. Hb is up which indicates hemoconcentration to some degree since he's pouring fluids into his inflamed retroperitoneum, will need to follow this and may need to go up on IV fluid rate even more but HR seems to be coming down so will follow this for now. 11/10/17: Continued improvement in symptoms and labs. HR coming down to just over 100. This indicates the retroperitoneal inflammation due to his pancreatitis is improving. Will plan on lap olya tomorrow, will see how he does today and how is labs are tomorrow morning. Condition Stable. Time Spent: < 30 min Exam Sepsis Risk: Sepsis Risk ADITI DOBBINS MD November 10, 2017 06:59
[2017-11-10 07:41] VITALS: BP 133/83
[2017-11-10] MEDS: ENOXAPARIN 40 MG/0.4ML SYR SC SCH (09:53)
[2017-11-10 11:14] VITALS: BP 128/73
--- NOTE | 2017-11-10 11:36 | Hospitalist Progress Note ---
Subjective Progress Notes Subjective He reports pain has essentially resolved. Still some distension. He has had BM. Physical Exam Vital Signs Date Time Temp Pulse Resp B/P (MAP) Pulse Ox O2 Delivery O2 Flow Rate FiO2 11/10/17 11:14 94 Nasal Cannula 1.0 11/10/17 11:14 110 11/10/17 11:14 99.5 16 128/73 (91) Intake and Output 11/11/17 07:00 Intake Total 2295 ml Balance 2295 ml Intake Oral 240 ml IV Total 2055 ml # Voids 1 General Appearance: Alert, Awake Cardiovascular: Regular Rate and Rhythm Respiratory: Clear to Auscultation GI: Other (distended, but soft/BS present/no tenderness elicited) Extremities: Warm, Perfused Result Diagram: 11/10/1752711/10/17527 Item Value Date Time Lipase 607 U/L H 11/10/17527 Amylase Level 88 U/L 11/10/17527 Triglycerides Level 895 mg/dl H 11/10/17527 Albumin 2.9 g/dl L 11/10/17527 Total Protein 5.6 gm/dl L 11/10/17527 Alkaline Phosphatase 98 U/L 11/10/17527 Alanine Aminotransferase (ALT/SGPT) 24 U/L 11/10/17527 Aspartate Amino Transf (AST/SGOT) 29 U/L 11/10/17527 Total Bilirubin 1.0 mg/dl 11/10/17527 Calcium Level 8.6 mg/dl 11/10/17527 Assessment and Plan Problems: (1) Acute pancreatitis Assessment & Plan: He did present with acute onset abdominal pain and vomiting. His lipase was elevated and his CT scan showed findings consistent with pancreatitis. He had a similar episode several months ago, which was unexplained. It does appear to most likely be gallstone pancreatitis. He is a non-drinker. He is tolerating clear liquids. Lipase is decreasing and he is reporting improvement in pain. Dr. Mckenzie is tentatively planning cholecystectomy tomorrow. (2) Sinus tachycardia Status: Acute Assessment & Plan: Secondary to illness. Heart rate is decreasing some. Follow closely. (3) Cholelithiasis Assessment & Plan: He CT scan showed a stone, but no evidence of ductal dilation. Ultrasound of the gallbladder is essentially the same. Dr. Mckenzie is planning on cholecystectomy tomorrow. (4) Type II diabetes mellitus Status: Chronic Assessment & Plan: He is on chronic treatment with metformin, which has been placed on hold. He is on sliding scale insulin. Exam Sepsis Risk: No Definite Risk Problem Qualifiers (1) Type II diabetes mellitus: Diabetes mellitus manager terminal insulin use: without manager terminal use Diabetes mellitus complication status: without complication Qualified Codes: E11.9 - Type 2 diabetes mellitus without complications MARY HERBERT MD November 10, 2017 11:36
[2017-11-10 15:22] VITALS: BP 143/86
[2017-11-10] MEDS: MORPHINE 1 MG/ML 30 ML PCA IV PRN (16:27)
[2017-11-10] MEDS ORDERED: ALBUTEROL/IPRATROPIUM 3 ML NEB NEB PRN (18:20)
--- NOTE | 2017-11-10 19:09 | RADIOLOGY IMAGING REPORT ---
FACILITY: [facility] - [place] PATIENT NAME: Pam Mazariegos : 1970 MR: [id number] V: [id number] EXAM DATE: ORDERING PHYSICIAN: ADITI DOBBINS TECHNOLOGIST: Location: [facility] Patient: Pam Mazariegos : 1970 Visit/Account:[id number] Date of Sevice: 11/10/2017 CHEST SINGLE AP Indication: Wheezing and tachycardia.. Comparison: None available Findings: Cardiomediastinal silhouette and pulmonary vessels within normal is for the technique. There is no focal infiltrate or lobar consolidation. No pneumothorax or pleural effusion. No nodule. Upper abdomen is unremarkable. No acute bony abnormality. IMPRESSION: 1. No acute cardiopulmonary process. Report Dictated By: Mayo Power at 11/10/2017 7:04 PM Report E-Signed By: Mayo Power at 11/10/2017 7:05 PM WSN:[id number]
[2017-11-10] MEDS ORDERED: LEVALBUTEROL 1.25 MG/3 ML NEB NEB PRN (19:20)
[2017-11-10 19:53] VITALS: BP 145/89
[2017-11-10 23:49] VITALS: BP 142/92
[2017-11-11] VITALS (13 sets, daily range): BP systolic 111–129; BP diastolic 73–96
[2017-11-11] MEDS ORDERED: NS(*) 0.9% 500 ML BAG 500 ML IV PRN (00:10)
[2017-11-11] MEDS ORDERED: NORMOSOL R SOLN(*) 1000 ML BAG 1,000 ML IV ONE (05:00)
[2017-11-11] MEDS ORDERED: FAMOTIDINE(*) 20MG/50ML PREMIX 50 ML IVPB ONE (06:00)
[2017-11-11 06:08] LABS: PLATELET COUNT, AUTOMATED 236 K/uL (150-450)
[2017-11-11] MEDS ORDERED: LIDOCAINE/SOD BICARB 8.4% SYR ONE (06:43)
[2017-11-11] MEDS ORDERED: AMPICILLIN/SULBACT (*) 3 GM VL 3 GM in NS(*) 0.9% 100 ML BAG 100 ML IVPB ONE (07:05)
--- NOTE | 2017-11-11 07:13 | General Surgery Progress Note ---
Subjective Progress Notes Subjective No new complaints. He feels that his abdominal pain and bloating are improving. Physical Exam Vital Signs Date Time Temp Pulse Resp B/P (MAP) Pulse Ox O2 Delivery O2 Flow Rate FiO2 11/11/17 05:01 96 11/11/17 03:55 103 11/11/17 03:17 99.2 18 122/81 (95) Room Air 11/10/17 19:57 1.0 General Appearance: Alert, Awake, No Acute Distress, Afebrile GI: Other (Soft, mild epigastric TTP, decreasing distension, no peritoneal signs.) Result Diagram: 11/11/17 0534 11/11/17 0534 Assessment and Plan Problems: (1) Acute gallstone pancreatitis Status: Acute Assessment & Plan: 11/08/17: He's admitted to the Hospitalist Service and currently on bowel rest. I recommend continuing current management. CT today reveals worsening and spreading inflammatory changes along pericolic gutter but patient is reporting that he's feeling better at the moment. CT today was without IV contrast since he received IV contrast 2 days ago. It is difficult to assess for necrotic pancreas without IV contrast. Will need to follow him closely and if he continues having fevers with worsening tachycardia, etc then I recommend starting imipenum and he will need to repeat an abdominal CT with IV contrast to look for (possibly infected) necrotic pancreas that may require debridement. Would also need to look for fluid collections on the same study. He is demonstrating worsening tachycardia and mild fevers of 99 deg F. These are likely secondary to the burn-like retroperitoneal inflammation seen on CT today. I recommend increasing his crystalloid IV fluid rate to 200ml/hour and boluses of crystalloid as necessary to match his 3rd spaced fluid losses due to his significant retroperitoneal inflammation. He will ultimately require cholecystectomy but will wait for his pancreatitis to clinically resolve. I have explained this plan to him and he seems to understand and he seems agreeable with the plan. 11/09/17: Lipase down but he's very distended and there was significant retroperitoneal inflammation on CT yesterday. Will hold off on cholecystectomy until swelling/distension improves. May need to repeat CT abdomen/pelvis with IV contrast tomorrow or . HR is improving with increased IV fluids. Hb is up which indicates hemoconcentration to some degree since he's pouring fluids into his inflamed retroperitoneum, will need to follow this and may need to go up on IV fluid rate even more but HR seems to be coming down so will follow this for now. 11/10/17: Continued improvement in symptoms and labs. HR coming down to just over 100. This indicates the retroperitoneal inflammation due to his pancreatitis is improving. Will plan on lap olya tomorrow, will see how he does today and how is labs are tomorrow morning. 11/11/17: Continued improvement. Vitals look good. To OR this morning for robotic cholecystectomy. Pt and his are agreeable with this plan. Condition Stable. Time Spent: < 30 min Exam Sepsis Risk: No Definite Risk ADITI DOBBINS MD November 11, 2017 07:13
[2017-11-11] MEDS ORDERED: IOPAMIDOL 61% 75 ML INFUS BTL 75 ML ONE (07:14)
[2017-11-11] MEDS ORDERED: ROPIVACAINE 0.5% 20 ML VIAL ONE (07:14)
[2017-11-11] MEDS ORDERED: INDOCYANINE GREEN 25 MG VIAL IVP ONE (07:38)
[2017-11-11] MEDS ORDERED: fentaNYL CITR 100 MCG/2 ML AMP ONE ×3 (08:11→10:59)
[2017-11-11] MEDS ORDERED: ROCURONIUM BROM 10 MG/ML 10 ML ONE (08:48)
[2017-11-11] MEDS ORDERED: ONDANSETRON 4 MG/2 ML VIAL ONE (08:48)
[2017-11-11] MEDS ORDERED: SUCCINYLCHOL CHL 200MG/10ML VL ONE (08:48)
[2017-11-11] MEDS ORDERED: PROPOFOL EMUL(*) 10MG/ML 20 ML 40 ML ONE (08:48)
[2017-11-11] MEDS ORDERED: DEXAMETHASONE SOD PHOS 10MG/ML ONE (08:48)
[2017-11-11] MEDS ORDERED: HYDROmorphone HCL 2 MG/ML SDV ONE (09:57)
--- NOTE | 2017-11-11 10:12 | RADIOLOGY IMAGING REPORT ---
FACILITY: [facility] PATIENT NAME: Pam Mazariegos : 1970 MR: [id number] V: [id number] EXAM DATE: ORDERING PHYSICIAN: ADITI DOBBINS TECHNOLOGIST: [place] [facility] [place]: Pam Mazariegos : 1970 Visit/Account:[id number] Date of Sevice: 11/11/2017 CHOLANGIOGRAM OPERATIVE Indication: GALLSTONES Comparison: None. Findings: Contrast is seen a cystic duct and the common bile duct. Contrast is also seen in the intr ahepatic biliary tree. IMPRESSION: Intraoperative cholangiogram. Radiation dose: DAP 0.41078 mGym2; Report Dictated By: David Horton at 11/11/2017 10:06 AM Report E-Signed By: David Horton at 11/11/2017 10:09 AM WSN:[email or web address]
[2017-11-11] MEDS ORDERED: SUGAMMADEX SOD 200 MG/2 ML SDV ONE (10:49)
--- NOTE | 2017-11-11 10:51 | Post Operative Progress Note ---
Post Operative Progress Note Date: November 11, 2017 Time: 10:41 Surgeon: Jonah Dictation number: [id number] Anesthesia: GETA by Dr. Sotomayor Pre-Op Diagnosis: Gallstone pancreatitis Post-Op Diagnosis: LEXY Findings: Possible small stone vs bubble at bifurcation in intrahepatic ducts, o/w normal IOC. Procedure(s): Robotic cholecystectomy with cholangiogram Specimen Removed:(May be N/A): GB and contents Complications: None Fluids: See anesthesia record Estimated Blood Loss: Minimal Date OP Note Dictated: November 11, 2017 Time OP Note Dictated: 10:42 ADITI DOBBINS MD November 11, 2017 10:51
[2017-11-11] MEDS ORDERED: INSU HUM REG 100 U/ML(ER ONLY) 10 ML VIAL IVP ONE (11:15)
--- NOTE | 2017-11-11 11:55 | Hospitalist Progress Note ---
Subjective Progress Notes Subjective This patient was admitted for gallstone pancreatitis. He had no acute events overnight. Patient Complains of: Cardiovascular: No: Chest Pain Respiratory: No: Shortness of Breath Physical Exam Vital Signs Date Time Temp Pulse Resp B/P (MAP) Pulse Ox O2 Delivery O2 Flow Rate FiO2 11/11/17 11:45 103 14 92 11/11/17 03:17 99.2 122/81 (95) Room Air 11/10/17 19:57 1.0 Intake and Output 11/12/17 07:00 Intake Total 2200 ml Output Total 10 ml Balance 2190 ml IV Total 2200 ml Output Estimated Blood Loss 10 ml Cardiovascular: Regular Rate and Rhythm Respiratory: Clear to Auscultation Result Diagram: 11/11/17 0534 11/11/17 0534 Assessment and Plan Problems: (1) Acute pancreatitis Assessment & Plan: He did present with acute onset abdominal pain and vomiting. His lipase was elevated and his CT scan showed findings consistent with pancreatitis. He was also noted to have gallstones. His lipase has been improving and he tolerated clear liquids prior to surgery. (2) Cholelithiasis Assessment & Plan: He did undergo cholecystectomy today. (3) Sinus tachycardia Status: Acute Assessment & Plan: This is likely secondary to his acute illness. He has been asymptomatic and his heart rate is improving as his pain is more controlled. (4) Type II diabetes mellitus Status: Chronic Assessment & Plan: He is on chronic treatment with metformin, which has been placed on hold. He is on sliding scale insulin. Exam Sepsis Risk: No Definite Risk Problem Qualifiers (1) Type II diabetes mellitus: Diabetes mellitus fci insulin use: without terminal carman use Diabetes mellitus complication status: without complication Qualified Codes: E11.9 - Type 2 diabetes mellitus without complications ADITI HAWKINS DO November 11, 2017 11:55
--- NOTE | 2017-11-11 16:46 | OPERATIVE REPORT 1 ---
EVENT DATE: November 11, 2017 SURGEON: Scar Mckenzie MD ANESTHESIOLOGIST: Celestine Sotomayor MD ANESTHESIA: General endotracheal anesthesia. PREOPERATIVE DIAGNOSIS Gallstone pancreatitis. POSTOPERATIVE DIAGNOSIS Gallstone pancreatitis. PROCEDURE PERFORMED Robotic cholecystectomy with intraoperative cholangiogram. COMPLICATIONS None. CONDITION Stable. BLOOD LOSS Minimal. FINDINGS This patient's cholangiogram was essentially normal. There was a small filling defect in the intrahepatic biliary system right at the bifurcation between the right and left bile ducts, but this could have been either a bubble or a small stone. The common bile duct was without any filling defects other than some bubbles that were flushed through the system, and contrast flowed into the duodenum without any problems. SPECIMENS Gallbladder and contents. INDICATIONS This is a 46-year-old gentleman who presented to the hospitalist service with pancreatitis, and on their subsequent workup, he was found to have gallstones. They consulted me, and we waited for his pancreatitis to improve and then consented him for cholecystectomy. DESCRIPTION OF PROCEDURE The patient was brought to the operating room, placed supine on the operating table. General endotracheal anesthesia was administered, and his abdomen was prepped and draped in a sterile fashion. A timeout was completed, and I injected the infraumbilical skin with 0.5% ropivacaine plain. I made a curvilinear smiley face-type incision in the infraumbilical rim, dissected through the dermis and subcutaneous fat. I identified the midline fascia and made a vertical incision in the midline fascia. I grasped the fascial edges with Arturo clamps and then penetrated the peritoneum with my finger. I placed two interrupted 0 Vicryl sutures transversely through the vertical fascial defect and inserted a 12 mm Diya-type port through this wound and secured it in place with sutures. I insufflated the abdomen to a pressure of 15 mmHg and then inserted the robotic camera. Next, under direct visualization, I placed an 8 mm robotic port in the left subcostal area, another 8 mm robotic port half way between the left upper quadrant port and the umbilicus, and then a third 8 mm robotic port in the right mid abdomen. The patient was placed in Trendelenburg and planed towards his left, and the robot was docked and targeted , and the instruments inserted. I then inserted an angiocatheter in the right upper quadrant in preparation for a cholangiogram and then scrubbed out, went to the robot console, and then grasped the fundus of the gallbladder and retracted it towards the patient's right shoulder. I started mobilizing both the medial and lateral aspects of the gallbladder. Because of the retroperitoneal edema, his viscera were quite anterior, and I did not have good visualization down of the infundibulum, and so I scrubbed back in and inserted a 10 mm port in the left mid abdomen above the mid 8 mm port and then used the liver fan retractor and then retracted the viscera down to improve my exposure. I then moved back to the console and used the hook to divide the peritoneum over the infundibulum and up both the medial and lateral aspects of the gallbladder and strip the peritoneum down and used blunt dissection mainly to dissect around the cystic duct as well as the cystic artery. Once these were completely cleaned off circumferentially, I clipped the artery proximally and distally and clipped the duct at the infundibulum-cystic duct junction, made a ductotomy, and then my physicians assistant threaded a cholangiocatheter through the Angiocath, and I threaded it into the ductotomy and then clipped it into place. We flushed it with saline, and it flushed without any problems. We then completed a cholangiogram, and I clearly identified the common bile duct and watched contrast go into the duodenum. There were bubbles that were being flushed in through the biliary system, and we watched these pass without problems. I identified the common hepatic duct and intrahepatic biliary system. There was a small filling defect up at the bifurcation. I am not sure if it is a small stone or a bubble. If it were a stone, it is likely to pass given its very small size, but I think likely it was a bubble. We then terminated the cholangiogram, pulled the catheter out, and then I placed two more clips on the cystic duct and then divided the duct and artery between the clips. I then divided the posterior attachment to the gallbladder, it from the gallbladder fossa, and the gallbladder was placed in a surgical specimen retrieval bag and removed from the abdomen through the 10 mm left- sided port. I then irrigated and dried the right upper quadrant, inspected the gallbladder fossa as well as the cystic duct and artery stumps, and there were no bile leaks or bleeding. I used the Firefly during my dissection, but I could not clearly see the common bile duct due to the degree of edema and fat anterior to the common duct. The glow would not penetrate. After the gallbladder was removed, and I was irrigating and drying the right upper quadrant, I did use Firefly again, and I did not see any evidence of bile leaks. I did place some Kelly hemostatic powder all along the gallbladder fossa as well as down by the cystic duct and arteries. I suctioned over the liver as well. I then removed all the robotic instruments, and the robot was undocked, and I used the suture passer and was able to place a [id number] 0 Vicryl suture in the 10 mm port fascia after removing the port. When I tied this down, it was airtight. The 8 mm ports were all removed. The patient's abdomen was desufflated. The umbilical port was removed, and then I closed the midline fascia with running 0 Vicryl suture and tied this down along with the other two preplaced sutures with good reapproximation of the fascial edges, and no remaining fascial defect. I then closed the skin at each port site with 4-0 Monocryl subcuticular sutures. Skin was cleaned and dried, and Steri-Strips were applied, followed by sterile surgical dressings. The patient was awakened and extubated in the operating room, transported to the recovery room in stable condition having tolerated the procedure without any apparent problems. IRMA
[2017-11-11] MEDS: INSULIN HUM LISPRO 100 UN/ML 3 ML VIAL SUBQ PRN ×2 (17:21→23:36)
[2017-11-12] MEDS: MORPHINE 1 MG/ML 30 ML PCA IV PRN (03:35)
[2017-11-12 05:52] LABS: PLATELET COUNT, AUTOMATED 292 K/uL (150-450)
[2017-11-12] MEDS ORDERED: MORPHINE 2 MG/ML SYR IVP PRN (06:35)
--- NOTE | 2017-11-12 06:36 | General Surgery Progress Note ---
Subjective Progress Notes Subjective No complaints. Feeling much better. Physical Exam Vital Signs Date Time Temp Pulse Resp B/P (MAP) Pulse Ox O2 Delivery O2 Flow Rate FiO2 11/12/17 06:11 96 11/12/17 00:05 95 11/11/17 23:26 99.1 17 128/80 (96) Room Air 11/11/17 20:10 2.0 General Appearance: Alert, Awake, No Acute Distress, Afebrile GI: Other (Soft, appropriate postop TTP, Dressings C/D/I.) Extremities: Warm, Perfused Result Diagram: 11/12/1752211/12/17522 Assessment and Plan Problems: (1) Acute gallstone pancreatitis Status: Acute Assessment & Plan: 11/08/17: He's admitted to the Hospitalist Service and currently on bowel rest. I recommend continuing current management. CT today reveals worsening and spreading inflammatory changes along pericolic gutter but patient is reporting that he's feeling better at the moment. CT today was without IV contrast since he received IV contrast 2 days ago. It is difficult to assess for necrotic pancreas without IV contrast. Will need to follow him closely and if he continues having fevers with worsening tachycardia, etc then I recommend starting imipenum and he will need to repeat an abdominal CT with IV contrast to look for (possibly infected) necrotic pancreas that may require debridement. Would also need to look for fluid collections on the same study. He is demonstrating worsening tachycardia and mild fevers of 99 deg F. These are likely secondary to the burn-like retroperitoneal inflammation seen on CT today. I recommend increasing his crystalloid IV fluid rate to 200ml/hour and boluses of crystalloid as necessary to match his 3rd spaced fluid losses due to his significant retroperitoneal inflammation. He will ultimately require cholecystectomy but will wait for his pancreatitis to clinically resolve. I have explained this plan to him and he seems to understand and he seems agreeable with the plan. 11/09/17: Lipase down but he's very distended and there was significant retroperitoneal inflammation on CT yesterday. Will hold off on cholecystectomy until swelling/distension improves. May need to repeat CT abdomen/pelvis with IV contrast tomorrow or . HR is improving with increased IV fluids. Hb is up which indicates hemoconcentration to some degree since he's pouring fluids into his inflamed retroperitoneum, will need to follow this and may need to go up on IV fluid rate even more but HR seems to be coming down so will follow this for now. 11/10/17: Continued improvement in symptoms and labs. HR coming down to just over 100. This indicates the retroperitoneal inflammation due to his pancreatitis is improving. Will plan on lap olya tomorrow, will see how he does today and how is labs are tomorrow morning. 11/11/17: Continued improvement. Vitals look good. To OR this morning for robotic cholecystectomy. Pt and his are agreeable with this plan. 11/12/17: POD#1 s/p robotic olya with gram for gallstone pancreatitis. Doing very good this morning. Will start regular diet this morning, stop IV fluids, and convert meds to PO. Home later today if he does well this morning. Condition Stable. Time Spent: < 30 min Exam Sepsis Risk: No Definite Risk ADITI DOBBINS MD November 12, 2017 06:36
[2017-11-12 06:56] VITALS: BP 114/76
--- NOTE | 2017-11-12 07:29 | Medical Nutrition Therapy ---
Nutrition Anthropometrics Weight (Pounds): 161 Weight (Calculated Kilograms): 73.028 Nitin Nutrition Score: Adequate Nitin Nutrition Risk Score: 17 Dietary Referral Nutrition Risk Factors: Nutrition Risk Comment: Physical Findings Physical Appearance: Ht not available Skin Appearance Skin Appearance: Edema Edema Location Modifier: Edema Location: Type of Edema: Degree of Edema: Gastrointestinal Symptoms GI Symtoms: Nausea Tube Present: Bowel Sounds: Recent Bowel Pattern: Stool Characteristics: Nutritional Diagnosis Nutritional Risk Acuity 1: NPO/CL > 3 days Nutritional Risk Acuity 2: Pancreatitis Past Medical History: Type II diabetes mellitus, Pancreatitis Nutritional Acuity: 1-High Nutrition Diagnosis: Altered GI Function Nutrition Etiology: Physiological Causes Nutrition Problem/Etiology/Sym: Altered Gastrointestinal (GI) Function related to compromised exocrine function of pancreas AEB patient reports of N/Abdominal pain and 1,293 Lipase. Energy Requirement: 2190 (30 kcal/kg 30X 73) Protein Requirement: 88 (acute pancreatitis 1.2g/kg ) Fluid Requirement: 2190 (1 ml/anita) Diet Type: Clear Liquids Nutrition Intervention: Change diet, Incr diet as tolerated Nutritional Support Recommended Enteral / Parental: TPN Recommended Goal Rate: 83ml/hr Recommended Duration: 24 (24 hr) Recommended Calories: 2040 (standard 2000ml (2040 kcal)) Recommended Protein: 84 (Standard TPN 2000ml 84g protein) Nutrition Monitoring & Eval Nutrition Goals: Eat 50-100% Meal RD Patient Assessment Time: [address] Assessment Type: RD Re-Assessment Patient Nutrition Acuity: 1-High Follow Up Date: November 12, 2017 Nutritional Comment: 11/07 Pt admitted with pancreatitis. Alb 3.4, Glu 240, High WBC, Lipase 17,244, Amylase 350. Lispro SSI. Not able to assess wt status - need to obtain HT. Pt NPO at present. Follow labs, clinical progression, diet changes, etc. -DRT 11/09 Pt continues day 4 on NPO diet. Pt may benefit from nutrition support with TPN usinf estimate kcal of 30 kcal per kg. 2000ml and 84g protein @ 83ml/hr for 24 hr feeding. Pt will most likely undergo cholecystectomy, however pt is still very distended and surgery will be put off until that is resolved. Abnormal labs are elevated lipase 1293, low alb 2.6 and elevated random blood glucose 173. Continue to monitor pt progress and diet advancement. MT 11/11 Pt continues with clear liquid diet with 100% intake. Continue to provide nutrition supplement. Pt went forward with cholecystectomy. Surgery went well. Pt may benefit from new cholecystectomy education. Notable labs low K+, alb, elevated lipase 550 and elevated whole blood glucose 279. Pt metformin is on hold and on sliding scale insulin. Continue to monitor pt progress and encourage intake. ELDON CRISTIANE AGUAYO November 11, 2017 13:49
[2017-11-12] MEDS: INSULIN HUM LISPRO 100 UN/ML 3 ML VIAL SUBQ PRN (08:47)
[2017-11-12] MEDS ORDERED: DOCUSATE SODIUM 100 MG CAP PO SCH (09:00)
[2017-11-12] MEDS ORDERED: FAMOTIDINE 20 MG TAB PO SCH (09:00)
[2017-11-12] MEDS ORDERED: NORMOSOL R SOLN(*) 1000 ML BAG 1,000 ML IV PRN (09:00)
[2017-11-12] MEDS ORDERED: PER PO (10:24)
--- NOTE | 2017-11-12 10:27 | Hospitalist Depart ---
Discharge Summary Reason for Hosp/Final Diag: (1) Acute pancreatitis Hospital Course & Plan: He did present with acute onset abdominal pain and vomiting. His lipase was elevated and his CT scan showed findings consistent with pancreatitis. He was also noted to have gallstones. His lipase has improved and he tolerated his diet. (2) Cholelithiasis Hospital Course & Plan: He did undergo cholecystectomy. (3) Sinus tachycardia Status: Acute Hospital Course & Plan: This is likely secondary to his acute illness. He has been asymptomatic and his heart rate is improving as his pain is more controlled. (4) Type II diabetes mellitus Status: Chronic Hospital Course & Plan: He is on chronic treatment with metformin, which has been placed on hold. He is on sliding scale insulin. (5) Hypertriglyceridemia Status: Acute Hospital Course & Plan: He was found to have a triglyceride level of 895 upon admission. He will follow up with PCP for evaluation of cholesterol panel within one to two weeks. Departure Latest Vital Signs Vital Signs 11/11/17 11/12/17 20:10 06:56 Temp 98.2 Pulse 89 Resp 16 B/P (MAP) 114/76 (89) Pulse Ox 87 O2 Delivery Room Air O2 Flow Rate 2.0 Weight (Pounds): 161 Result Diagram: 11/12/17 0523 11/12/17 0523 Condition: Improved Discharge: Home, Self Care Discharge Instructions Home Meds Active Scripts Oxycodone/Acetaminophen (OXYCODONE/ACETAMINOPHEN 5MG/325 MG) 5 Mg/325 Mg Tab, 1 TAB PO Q4-6H Y for PAIN, #20 TAB Prov:THU PINZON 11/12/17 Reported Medications Metformin Hcl (METFORMIN HCL) 1,000 Mg Tablet, 1 TAB PO QDAY, TAB 11/06/17 Diet: Regular Activity: As Tolerated Venous Thromboembolism Antithrombotics Is Pt On Any Antithrombotics?: No Problem Qualifiers (1) Type II diabetes mellitus: 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
--- NOTE | 2017-11-15 09:48 | Miscellaneous Provider Note ---
Miscellaneous Provider Note Note The patient's presented to the medical floor on 11/15 stating that the patient only had a few Percocet left and did not have a f/u appt. until November. He was discharged in the am on 11/12 after cholecystectomy and has been taking one Percocet every 4-6 hours. He does not have a PCP. Agreed to refill Percocet 5/325mg, # 20, one time, as it is a holiday and it appears he is using them appropriately. Recommended calling the surgeon sr. manager corporate communications if his pain persists. LUISANA HERBERT MD November 15, 2017 09:48
== END 2017-11-12 12:05 | disposition home or self-care (01) | DRG 418 ==
LOC: ER 23:12 → MED 11-07 01:44
PROVIDERS: ADMIT Family Medicine; ATTEND Family Medicine
PROC: 8E0W4CZ Robotic Assisted Procedure of Trunk Region, Percutaneous Endoscopic Approach (ICD-10-PCS; 2017-11-11)
PROC: BF0CYZZ Plain Radiography of Hepatobiliary System, All using Other Contrast (ICD-10-PCS; 2017-11-11)
PROC: 0FT44ZZ Resection of Gallbladder, Percutaneous Endoscopic Approach (ICD-10-PCS; principal; 2017-11-11 07:45)
DX: K85.10 Biliary acute pancreatitis without necrosis or infection (principal); J90 Pleural effusion, not elsewhere classified; K80.10 Calculus of gallbladder with chronic cholecystitis without obstruction; R00.0 Tachycardia, unspecified; E11.9 Type 2 diabetes mellitus without complications; E78.1 Pure hyperglyceridemia; R09.89 Other specified symptoms and signs involving the circulatory and respiratory systems; Z79.84 Long term (current) use of oral hypoglycemic drugs
CPT/HCPCS: 36415; 36416; 71045; 74176; 74177; 74300; 76705; 81001; 82040; 82150; 82247; 82248; 82310; 82374; 82435; 82565; 82947; 82948; 83690; 84075; 84132; 84155; 84295; 84443; 84450; 84460; 84478; 84520; 85025; 88304; 93005; 99285; J0295; J0330; J1100; J1170; J1650; J1815; J1885; J1940; J2270; J2405; J2550; J2704; J2795; J3010; J3490; J7030; J7040; J7050; Q9967

== ENCOUNTER → 2017-11-19 | Outpatient (CLI) | payer SELFPAY ==
[~2017-11-19] MED LIST: METF-421 PO; PER PO
[2017-11-19 07:33] LABS: PLATELET COUNT, AUTOMATED 432 K/uL (150-450)
--- NOTE | 2017-11-19 08:54 | RADIOLOGY IMAGING REPORT ---
FACILITY: [facility] PATIENT NAME: Pam Mazariegos : 1970 MR: [id number] V: [id number] EXAM DATE: ORDERING PHYSICIAN: CARLA MARIE TECHNOLOGIST: Location: [facility] - [place] Patient: Pam Mazariegos : 1970 Visit/Account:[id number] Date of Sevice: 11/19/2017 EXAMINATION: Abdominal ultrasound complete HISTORY: Abdomen pain, history of pancreatitis, recent cholecystectomy COMPARISON: CT abdomen and pelvis November 08, 2017 FINDINGS: Gallbladder: Surgically removed Liver: Mild hepatomegaly with increased echogenicity throughout the liver which can be seen with fatt y infiltration or other infiltrative process. Common duct: Normal measuring three mm. Pancreas: Obscured by bowel gas. There is a complex fluid collection seen just lateral to the head o f the pancreas measuring 2.1 x 4.4 x 2.4 cm. A second complex fluid collection is seen extending fro m the inferior margin of the right kidney medially to close to midline of the abdomen. Complications fluid collections were seen in these locations on the prior CT although direct comparison between two imaging modalities would be difficult. Spleen: Normal in size and echogenicity measuring 8.3 cm in length. Kidneys: Normal in size and echogenicity, the right measures 10.9 cm in length, and the left 11.3 cm . No hydronephrosis. Upper abdominal aorta and IVC: Negative. Ascites: Complex fluid collections as described above IMPRESSION: Post surgical changes from a cholecystectomy Mild hepatomegaly with increased echogenicity throughout liver which can be seen with fatty infiltrat ion other infiltrative process 2. Complex fluid collections are seen one just lateral to the head of the pancreas and one just medial to the right kidney extending towards midline. Fluid collections w ere seen in these locations on the prior CT from November 08, 2017 related to patient's known pancreatitis . The patient has had had a cholecystectomy in the interim. If an infected postoperative collection is of clinical concern a CT of abdomen pelvis is recommended for further evaluation. Report Dictated By: Niki Garcia MD at 11/19/2017 8:47 AM Report E-Signed By: Niki Garcia MD at 11/19/2017 8:51 AM WSN:[email or web address]
== END ==
LOC: US 07:14
PROVIDERS: ATTEND Surgery
DX: K76.0 Fatty (change of) liver, not elsewhere classified (principal); R16.0 Hepatomegaly, not elsewhere classified; Z90.49 Acquired absence of other specified parts of digestive tract
CPT/HCPCS: 36415; 76700; 82040; 82247; 82310; 82374; 82435; 82565; 82947; 83690; 84075; 84132; 84155; 84295; 84450; 84460; 84520; 85025

== ENCOUNTER → 2017-12-06 | Outpatient (CLI) | payer SELFPAY ==
[2017-12-06 11:57] LABS: PLATELET COUNT, AUTOMATED 264 K/uL (150-450)
== END ==
LOC: LAB 11:31
PROVIDERS: ATTEND Surgery
DX: R10.10 Upper abdominal pain, unspecified (principal); R14.0 Abdominal distension (gaseous); R68.81 Early satiety; Z87.19 Personal history of other diseases of the digestive system
CPT/HCPCS: 36415; 82040; 82247; 82248; 82310; 82374; 82435; 82565; 82947; 83690; 84075; 84132; 84155; 84295; 84450; 84460; 84520; 85025

== ENCOUNTER → 2017-12-07 | Outpatient (CLI) | payer SELFPAY ==
[~2017-12-07] MED LIST changes: +IOPAMIDOL 76% 75 ML INFUS BTL 75 ML ONE
--- NOTE | 2017-12-07 19:33 | RADIOLOGY IMAGING REPORT ---
FACILITY: [facility] PATIENT NAME: Pam Mazariegos : 1970 MR: [id number] V: [id number] EXAM DATE: ORDERING PHYSICIAN: ADITI DOBBINS TECHNOLOGIST: Location: [facility] - [place] Patient: Pam Mazariegos : 1970 Visit/Account:[id number] Date of Sevice: 12/07/2017 EXAMINATION: CT abdomen and pelvis without and with IV contrast HISTORY: Upper abdominal pain. Bloating. Recent cholecystectomy. TECHNIQUE: Axial CT images of the abdomen and pelvis were obtained without and with IV contrast, wi th coronal and sagittal 2D reconstructed images. One of the following dose optimization techniques was utilized in the performance of this exam: Autom ated exposure control; adjustment of the mA and/or kV according to the patient's size; or use of an i terative reconstruction technique. Specific details can be referenced in the facility's radiology C T exam operational policy. Contrast: 75 mL of IV Isovue-[id number]. COMPARISON: Abdominal ultrasound 11/19/2017. CT abdomen/pelvis without contrast 11/08/2017. FINDINGS: Liver: Fatty infiltration of the liver with stable hepatomegaly. The liver measures 20 cm in length. No focal liver lesion. The hepatic veins and portal veins are patent. Gallbladder and bile ducts: The gallbladder is surgically absent, new since the prior CT. No bile du ct dilatation. Spleen: Negative. Pancreas: Normal CT appearance of the pancreas, with normal parenchymal enhancement. No pancreatic d uctal dilatation. There is a peripherally enhancing fluid collection adjacent to the pancreatic head and second portion of the duodenum which tracks inferiorly along the anterior right pararenal space. The dominant compo nent adjacent to the pancreatic head and duodenum measures approximately 1.8 x 4.4 cm. There was a la rger collection of poorly defined retroperitoneal fluid in this region on the prior noncontrast abdom inal CT with fluid previously measuring approximately 2.9 x 7.8 cm at a similar level. On today's exa m this collection appears to be more organized but smaller in size. This collection tracks craniocaud ally over a length of approximately 8.9 cm becoming thin and linear more inferiorly along the anterio r perirenal space. There was more extensive fluid tracking inferiorly along the right retroperitoneum on the prior CT. Additional small sliver of fluid along the anterior left pararenal space posterior to the pancreatic tail. The collection adjacent to the pancreatic head and duodenum has also likely decreased partially in si ze since the more recent ultrasound which demonstrated a collection measuring approximately 6.0 x 3.8 x 2.8 cm in this region. No other discrete peripancreatic fluid collection. Adrenal glands: Negative. Kidneys: Negative. No hydronephrosis or urinary calculi. Bowel and peritoneum: The small bowel and colon are normal in caliber. No bowel obstruction. No loca lized bowel wall thickening. The appendix is unremarkable. No free fluid or free intraperitoneal air. Pelvic structures: Negative. Lymph node assessment: Negative. Vessels: Normal caliber abdominal aorta. Retroaortic left renal vein. The hepatic veins, portal vein s, and portal tributaries are patent. Musculoskeletal: Negative. Body wall: Negative. Lung bases: Negative. IMPRESSION: 1. Interval cholecystectomy since the prior CT. No bile duct dilatation. 2. Peripherally enhancing fluid collection along the right retroperitoneum with a dominant loculation adjacent to the pancreatic head and second portion of the duodenum and a more linear component track ing inferiorly along the anterior right pararenal space. There was more extensive poorly defined flui d tracking along the right retroperitoneum on the prior CT. The current fluid collection is significa ntly smaller in size but does appear more organized and could represent a pseudocyst related to prior pancreatitis. Additional small sliver of fluid and soft tissue thickening along the left retroperito neum. No acute peripancreati stranding. 3. Hepatic steatosis with hepatomegaly. 4. No other new intra-abdominal findings. Report Dictated By: Jaime iCsse MD at 12/07/2017 7:15 PM Report E-Signed By: Jaime Cisse MD at 12/07/2017 7:29 PMWSN:[id number]
== END ==
LOC: CT 01:27
PROVIDERS: ATTEND Surgery
DX: K76.0 Fatty (change of) liver, not elsewhere classified (principal); R16.0 Hepatomegaly, not elsewhere classified; Z90.49 Acquired absence of other specified parts of digestive tract
CPT/HCPCS: 74178; Q9967

== ENCOUNTER 2018-10-23 20:03 | Emergency (ER) | payer SELFPAY ==
[~2018-10-23 20:03] MED LIST changes: -IOPAMIDOL 76% 75 ML INFUS BTL 75 ML ONE; -METF-421 PO; +METF-452 PO
--- NOTE | 2018-10-23 20:10 | ER Report ---
History and Physical Time Seen By MD: 20:10 HPI/ROS CHIEF COMPLAINT: Dental pain HISTORY OF PRESENT ILLNESS: This is a 47-year-old male presents to the emergency department for dental pain. Over the last 2 days patient has had some left upper molar pain, increasing in intensity. Has some swelling to the left upper molar. Denies injuring the tooth. No fevers or chills. No nausea or vomiting. No other complaints. REVIEW OF SYSTEMS: Dental: As above. Respiratory: No cough, no dyspnea. Cardiovascular: No chest pain, no palpitations. Gastrointestinal: No vomiting, no abdominal pain. Musculoskeletal: No back pain. Allergies: Coded Allergies: No Known Drug Allergies (Unverified , 11/06/17) Home Meds Active Scripts Hydrocodone Bit/Acetaminophen (HYDROCODON-ACETAMINOPHEN 5-325) 1 Each Tablet, 1 EACH PO Q4-6H PRN for PAIN, #4 TAB Prov:BRIDGETT GROSS [facility]- 10/23/18 Penicillin V Potassium 500 Mg Tab (PENICILLIN V POTASSIUM 500 MG TAB) 500 Mg Tablet, 500 MG PO QID for 7 Days, #25 TAB 0 Refills Prov:BRIDGETT GROSS [facility]- 10/23/18 Oxycodone/Acetaminophen (OXYCODONE/ACETAMINOPHEN 5MG/325 MG) 5 Mg/325 Mg Tab, 1 TAB PO Q4-6H PRN for PAIN, #20 TAB Prov:THU PINZON [facility] 11/12/17 Reported Medications Metformin Hcl (METFORMIN HCL) 1,000 Mg Tablet, 1 TAB PO QDAY, TAB 11/06/17 Past Medical/Surgical History Patient has a past medical and surgical history of wearing glasses, cholecystectomy, type II diabetes. Reviewed Nurses Notes: Yes Hx Smoking: No Hx Substance Use Disorder: No Hx Alcohol Use: No Constitutional Vital Sign - Last 24 Hours 10/23/18 20:11 Temp 97.3 Pulse 98 Resp 17 B/P (MAP) 138/91 Pulse Ox 94 O2 Delivery Room Air Physical Exam General Appearance: The patient is alert, has no immediate need for airway protection and no current signs of toxicity. Eyes: Pupils equal and round no injection. Dental: Mild gingivitis, #16 tooth does appear to have a hole in it, this could be source of infection, severely dental carry identified at this time. Respiratory: Chest is non tender, lungs are clear to auscultation. Cardiac: regular rate and rhythm. Gastrointestinal: Abdomen is soft and non tender, no masses, bowel sounds normal. Musculoskeletal: Neck: Neck is supple and non tender. Extremities have full range of motion and are non tender. Skin: No rashes or lesions. DIFFERENTIAL DIAGNOSIS: After history and physical exam differential diagnosis was considered for dental abscess, cellulitis, Edward's angina. Medical Decision Making ED Course/Re-evaluation ED Course The patient was admitted to room. A history of physical were obtained. Differential diagnoses were considered. After examination patient did determine that he does have dental caries and a #16 tooth, this could be the source of infection coming is started on penicillin, is also given hydrocodone in the emergency department as well as a prescription. He was also given a prescription for penicillin and instructed to follow-up with a dentist this week. Patient exposed understanding was discharged home. He had no other questions or concerns at this time. Decision to Disposition Date: October 23, 2018 Decision to Disposition Time: 20:16 Depart Departure Latest Vital Signs Vital Signs Date Time Temp Pulse Resp B/P (MAP) Pulse Ox O2 Delivery O2 Flow Rate FiO2 10/23/18 20:11 97.3 98 17 138/91 94 Room Air Impression: Primary Impression: Pain, dental Additional Impression: Dental caries Condition: Improved Disposition: HOME OR SELF-CARE Referrals: ADITI DOBBINS MD (PCP) New Scripts Hydrocodone Bit/Acetaminophen (HYDROCODON-ACETAMINOPHEN 5-325) 1 Each Tablet 1 EACH PO Q4-6H PRN for PAIN, #4 TAB Prov: BRIDGETT GROSS-[facility] 10/23/18 Penicillin V Potassium 500 Mg Tab (PENICILLIN V POTASSIUM 500 MG TAB) 500 Mg Tablet 500 MG PO QID for 7 Days, #25 TAB 0 Refills Prov: BRIDGETT GROSS-[facility] 10/23/18 Patient Instructions: Dental Caries (ED) Additional Instructions: You do have what appears to be an infection in the left upper molar, you need to contact a dentist in follow-up this week. You have been started on penicillin for the infection. Use Tylenol or ibuprofen as needed for pain. Use hydrocodone for severe pain. If you use the hydrocodone do not use Tylenol at the same time. You can gargle with salt water as well. Drink plenty of water. Get plenty of rest. Return to the ER for any concerns or worsening symptoms. Problem Qualifiers BRIDGETT GROSS [employer] October 23, 2018 20:10
[2018-10-23] MEDS ORDERED: PENI-24 PO (20:19)
[2018-10-23] MEDS ORDERED: HYDR-385 PO (20:19)
[2018-10-23] MEDS ORDERED: PENICILLIN VK 250 MG PO ONE (20:20)
[2018-10-23] MEDS ORDERED: ACET/HYDROC 5/325MG TH ER ONLY 2 TAB/BOTTLE PO ONE (20:20)
[2018-10-23 20:30] VITALS: BP 122/90
[2018-10-23] MEDS ORDERED: PENICILLIN VK 250 MG TAB ONE (20:37)
[2018-10-23] MEDS ORDERED: PENICILLIN VK 250 MG TAB PO SCH (21:00)
[2018-10-23] MEDS: APAP/HYDROCODONE 325/5 TAB PO ONE ×2 (21:00→22:24)
[2018-10-24] MEDS ORDERED: PENICILLIN VK 250 MG TAB PO SCH (06:00)
== END 2018-10-23 21:01 | disposition home or self-care (01) ==
LOC: ER 20:17
DX: K08.89 Other specified disorders of teeth and supporting structures (principal); K02.9 Dental caries, unspecified
CPT/HCPCS: 99283